=== PATIENT | female | born 1985 | race American Indian/Alaskan Native ===

== ENCOUNTER 2018-10-26 08:27 | Emergency (ER) | payer OTHER ==
[2018-10-26 08:46] VITALS: BP 121/71
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
== END 2018-10-26 09:39 | disposition home or self-care (01) ==
LOC: ED 08:27
DX: T22.212A Burn of second degree of left forearm, initial encounter (principal); T31.0 Burns involving less than 10% of body surface; Z79.899 Other long term (current) drug therapy; X10.0XXA Contact with hot drinks, initial encounter; Y93.89 Activity, other specified; Y92.89 Other specified places as the place of occurrence of the external cause; Y99.8 Other external cause status
CPT/HCPCS: 99282